=== PATIENT | female | born 1995 | race Asian ===

== ENCOUNTER 2022-06-01 19:12 | Emergency (ER) | payer OTHER ==
[2022-06-01] MEDS ORDERED: KETOROLAC 30 MG/ML VIAL IM STA (20:07)
--- NOTE | 2022-06-01 20:16 | ED Physician Documentation ---
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 No history of similar. She is taken 200 mg of ibuprofen twice without relief of symptoms. No saddle anesthesia loss of bowel or bladder fun ction. No paresthesias in the legs and no radiation of pain down the leg. Review of Systems Constitutional: reports: Reviewed and negative Nose: reports: Reviewed and negative Cardiac: reports: Reviewed and negative Respiratory: reports: Reviewed and negative GI: reports: Reviewed and negative : denies: Unable to Void, Incontinent Skin: reports: Reviewed and negative Musculoskeletal: reports: Back pain Neurologic: reports: Reviewed and negative PD PAST MEDICAL HISTORY - Present Medications Home Medications: Ambulatory Orders Medication Instructions Recorded Confirmed Cyclobenzaprine [Flexeril] 10 mg PO TID PRN #20 tablet 06/01/22 - Allergies Allergies/Adverse Reactions: Allergies Allergy/AdvReac Type Severity Reaction Status Date / Time No Known Drug Allergies Allergy Verified 06/01/22 19:23 PD ED PE NORMAL - General General: Alert and oriented X 3, No acute distress, Well developed/nourished - HEENT HEENT: Atraumatic, Moist mucous membranes - Neck Neck: Supple, no meningeal sign, No adenopathy - Cardiac Cardiac: RRR, No murmur - Respiratory Respiratory: No respiratory distress, Clear bilaterally - Back Back: No: No spinal TTP (Mild midline lower lumbar sacral tenderness without erythema crepitus or obvious deformity. Reduced forward flexion the lower lumbar Spine secondary to pain. Motor strength is 5 of 5. Normal gait. No paresthesias. Negative straight leg.) - Extremities Extremities: Other (negative straight leg exam) - Neuro Neuro: No: No motor deficit, No sensory deficit Eye Opening: Spontaneous Motor: Obeys Commands Verbal: Oriented GCS Score: 15 Results - Vitals Vitals: Vital Signs - 24 hr 06/01/22 19:23 Temperature 36.5 C Heart Rate 75 Respiratory 14 Rate Blood Pressure 147/62 H O2 Saturation 95 Oxygen O2 Source Room air PD MEDICAL DECISION MAKING - ED course Complexity details: re-evaluated patient, considered differential, d/w patient ED course: 26-year-old female presents emergency department for evaluation of acute low back pain sustained 2 days ago when lifting about 130 pounds. History of back pain previous. She does have pain in the midline lower lumbar region but clinically no red flags on exam and a reassuring exam with a normal gait. She has been taking subtherapeutic doses of ibuprofen at home. She was a dministered 30 mg of Toradol here in the emergency department and on reevaluation had reported some improved pain. I discussed the patient routine management of acute low back pain in the absence of red flags. I recommend Motrin and Tylenol with limited amount of muscle relaxer at night. 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 I did recommend that she avoid heavy lifting until the back pain improves. Otherwise emergent return precautions were discussed Departure - Departure Disposition: 01 Home, Self Care Clinical Impression: Low back pain Qualifiers: Chronicity: acute Back pain laterality: midline Sciatica presence: without sciatica Qualified Code(s): M54.50 - Low back pain, unspecified Condition: Stable Instructions: ED Low Back Pain Injury Prescriptions: Cyclobenzaprine [Flexeril] 10 mg PO TID PRN #20 tablet PRN Reason: Spasms Comments: You are seen today in the emergency department for 2 days of midline low back pain after doing weights 2 days ago. As we discussed at the bedside I spoke suspect that you either have a minor disc herniation or possibly a pulled lumbar muscle. Please take ibuprofen 600 mg with food 2-3 times a day or alternate with 500 mg of Tylenol 2-3 times a day. I sent a prescription for a limited amount of Flexeril, a muscle relaxer, to the [facility] in [place]. I do recommend that you avoid weight lifting until your back pain improves. Please follow closely with [facility]. Given your age and your activity history you may benefit from early referral to physical therapy. Return to the emergency department if you develop numbness in your genital area, lose control of your bowel or bladder function or develop any fevers.
[2022-06-01 20:45] VITALS: BP 129/78
== END 2022-06-01 20:50 | disposition home or self-care (01) ==
LOC: ED 19:12
DX: M54.50 Low back pain, unspecified (principal)
CPT/HCPCS: 96372; 99282; 99283

== ENCOUNTER 2024-01-11 07:00 | Outpatient (CLI) | payer OTHER ==
--- NOTE | 2024-01-13 12:58 | MRI Report ---
PROCEDURE: Lumbar Spine WO INDICATIONS: LOW BACK PAIN TECHNIQUE: Noncontrast sagittal T1 spin echo and T2 fast echo, sagittal STIR, axial T1 and T2 fast spin echo thr ough the lumbar spine. In cases with scoliosis, additional coronal T2 fast spin echo may be performe d. COMPARISON: None. FINDINGS: Image quality: Excellent. Alignment and Curvature: There is normal bony alignment. Bone Marrow: Marrow is of normal overall signal. No acute vertebral body compression fractures. Spinal Cord: Conus medullaris terminates at the L1 level. Visualized cord demonstrates normal signa l and size. Paraspinous Soft Tissues: No paravertebral masses. T12-L1: Normal in appearance. L1-L2: Normal in appearance. L2-L3: Normal in appearance. L3-L4: Normal in appearance. L4-L5: Posterior central disc protrusion with. There is closed contact with the approaching left L5 nerve root . Annular fissure present. Mild left neural foraminal narrowing. L5-S1: Right foraminal disc protrusion without significant neural foraminal narrowing. Questionable superimposed annular fissure. IMPRESSION: Posterior central disc protrusion at L4-5, making close contact of the approaching left L5 nerve root . Right foraminal disc protrusion without significant neural foraminal narrowing at L5-S1. Reviewed by: Franklin Momin MD on 01/13/2024 12:57 PM PDT Approved by: Franklin Momin MD on 01/13/2024 12:57 PM PDT Station ID: [id number]
== END 2024-01-11 07:01 | disposition home or self-care (01) ==
LOC: DI 07:00
DX: M51.16 Intervertebral disc disorders with radiculopathy, lumbar region (principal); M51.17 Intervertebral disc disorders with radiculopathy, lumbosacral region